=== PATIENT | female | born 1995 | race Caucasian/White ===

== ENCOUNTER → 2016-11-03 | Outpatient (CLI) | payer OTHER, BC | LOC: COL.RAD 09:17 | DX: M19.012 Primary osteoarthritis, left shoulder (principal); M25.812 Other specified joint disorders, left shoulder ==

== ENCOUNTER → 2017-02-07 | Emergency (ER) | payer OTHER, BC ==
[~2017-02-07] VITALS: Ht 160 cm; Wt 53.6 kg
[~2017-02-07] MED LIST: BIOTIN10000 MC1 PO; CALCIUM 600/VIT1 CAP PO; PRENATAL PLUS
[2017-02-07 14:10] VITALS: BP 132/85; PULSE 105; TEMP 97.9
[2017-02-07 15:15] LABS: BASO # 0.1 (0.0-0.2); BASO % 0.6 % (0.0-2.0); EOS # 0.1 (0.0-0.7); EOS % 0.5 % (0-4.0); GRAN % 62.1 % (42.2-75.2); HEMATOCRIT 46.2 % (35.0-45.0); HEMOGLOBIN 16.6 g/dl (12.0-15.0); LYMPH % 30.8 % (20.0-51.0); MEAN CELL VOLUME 87 fl (80.0-95.0); MEAN CORPUSCULAR HEMOGLOBIN 31 pg (26.0-32.0); MEAN CORPUSCULAR HGB CONC 36 g/dl (33.0-37.0); MONO # 0.6 (0.1-0.6); MONO % 5.8 % (1.7-9.3); PLATELET COUNT 261 K/mm3 (130-400); RED BLOOD COUNT 5.33 M/mm3 (4.10-5.30); REDCELL DISTRIBUTION WIDTH-CV 11.9 % (11.5-14.5); WHITE BLOOD COUNT 9.6 K/mm3 (4.8-10.8)
[2017-02-07 15:38] LABS: PH 7 (5-8); SQUAMOUS EPITHELIAL 0-2 /hpf; URINE APPEARANCE Clear; URINE BACTERIA Rare /hpf; URINE BILIRUBIN Negative (NEGATIVE); URINE BLOOD Negative (NEGATIVE); URINE COLOR Straw; URINE GLUCOSE Negative (NEGATIVE); URINE KETONE 1+ (NEGATIVE); URINE RBC 0-2 /hpf; URINE UROBILINOGEN Negative (NEGATIVE); URINE WBC None Seen /hpf
[2017-02-07 15:59] LABS: CREATININE, serum 0.79 mg/dL (0.52-1.25); POTASSIUM 3.9 mmol/L (3.4-5.0)
== END ==
LOC: COL.ER 13:57
PROVIDERS: Emergency Medicine
DX: O34.80 Maternal care for other abnormalities of pelvic organs, unspecified trimester (principal); N83.11 Corpus luteum cyst of right ovary; Z87.59 Personal history of other complications of pregnancy, childbirth and the puerperium; Z3A.00 Weeks of gestation of pregnancy not specified

== ENCOUNTER 2017-10-11 06:45 | Inpatient (IN) | payer BC, OTHER ==
[2017-10-11] VITALS (77 sets, daily range): BP systolic 116–171; BP diastolic 67–106; PULSE 84–171; TEMP 97.2–100.8
[~2017-10-11] VITALS: Ht 157.5 cm; Wt 74.5 kg
[2017-10-11] MEDS ORDERED: UNISOM25 MG PO (07:29)
[2017-10-11] MEDS ORDERED: VITAMIN B-6100 MG PO (07:30)
[2017-10-11 08:13] LABS: COLLECTION METHOD CLEAN CATCH
[2017-10-11 08:21] LABS: BASO # 0.1 (0.0-0.2); BASO % 0.5 % (0.0-2.0); EOS # 0.1 (0.0-0.7); EOS % 0.7 % (0-4.0); GRAN # 8.1 (1.4-6.5); GRAN % 74.8 % (42.2-75.2); HEMOGLOBIN 13.5 g/dl (12.5-16.0); LYMPH # 1.8 (1.2-3.4); LYMPH % 16.3 % (20.0-51.0); MEAN CELL VOLUME 91 fl (80.0-100.0); MEAN CORPUSCULAR HEMOGLOBIN 32 pg (27.0-31.0); MEAN CORPUSCULAR HGB CONC 35 g/dl (33.0-37.0); MEAN PLATELET VOLUME 10.5 fl (7.4-10.4); MONO # 0.7 (0.1-0.6); MONO % 6.4 % (1.7-9.3); PLATELET COUNT 174 K/mm3 (130-400); RED BLOOD COUNT 4.29 M/mm3 (4.10-5.30); REDCELL DISTRIBUTION WIDTH-CV 13.5 % (11.5-14.5)
[2017-10-11 08:24] LABS: PH 7 (5-8); SQUAMOUS EPITHELIAL 0-2 /hpf; URINE APPEARANCE Clear; URINE BACTERIA Rare /hpf; URINE BILIRUBIN Negative (NEGATIVE); URINE BLOOD Negative (NEGATIVE); URINE COLOR Straw; URINE GLUCOSE Negative (NEGATIVE); URINE KETONE Negative (NEGATIVE); URINE LEUKOCYTE ESTERASE Negative (NEGATIVE); URINE NITRATE Negative (NEGATIVE); URINE PROTEIN(semi-quant) Negative (NEGATIVE); URINE RBC None Seen /hpf; URINE UROBILINOGEN Negative (NEGATIVE); URINE WBC 0-2 /hpf
[2017-10-11 08:40] LABS: ALBUMIN 3.1 gm/dL (3.5-5.0); BILIRUBIN,TOTAL 0.7 mg/dL (0.0-1.0); CALCIUM 9.9 mg/dL (8.4-10.2); CREATININE, serum 0.75 mg/dL (0.52-1.25); POTASSIUM 3.8 mmol/L (3.4-5.0); TOTAL PROTEIN 6.3 gm/dL (6.4-8.2)
[2017-10-12] VITALS (7 sets, daily range): BP systolic 124–135; BP diastolic 68–88; PULSE 86–111; TEMP 97.6–98.6
[2017-10-12 07:16] LABS: BASO # 0.1 (0.0-0.2); BASO % 0.4 % (0.0-2.0); EOS % 0.2 % (0-4.0); GRAN # 16.1 (1.4-6.5); GRAN % 83.3 % (42.2-75.2); LYMPH # 1.7 (1.2-3.4); LYMPH % 8.6 % (20.0-51.0); MEAN CELL VOLUME 90 fl (80.0-100.0); MEAN CORPUSCULAR HGB CONC 35 g/dl (33.0-37.0); MEAN PLATELET VOLUME 10.2 fl (7.4-10.4); MONO # 1.3 (0.1-0.6); MONO % 6.7 % (1.7-9.3); PLATELET COUNT 149 K/mm3 (130-400); RED BLOOD COUNT 3.64 M/mm3 (4.10-5.30); REDCELL DISTRIBUTION WIDTH-CV 13.4 % (11.5-14.5)
[2017-10-12 07:23] LABS: HEMATOCRIT 32.7 % (37.0-47.0); HEMOGLOBIN 11.5 g/dl (12.5-16.0); MEAN CORPUSCULAR HEMOGLOBIN 32 pg (27.0-31.0)
[2017-10-12 07:24] LABS: ALBUMIN 2.7 gm/dL (3.5-5.0); BILIRUBIN,TOTAL 0.8 mg/dL (0.0-1.0); CREATININE, serum 0.79 mg/dL (0.52-1.25); POTASSIUM 4.2 mmol/L (3.4-5.0); TOTAL PROTEIN 5.5 gm/dL (6.4-8.2)
[2017-10-13 02:17] VITALS: BP 120/70; PULSE 89; TEMP 98.6
[2017-10-13 07:40] VITALS: BP 138/88; PULSE 93; TEMP 97.8
[2017-10-13] MEDS ORDERED: MOTRIN 800800 MG/TAB PO (09:51)
[2017-10-13] MEDS ORDERED: PERCOCET 325 MG1 TA2 PO (09:51)
== END 2017-10-13 12:55 | disposition home or self-care (01) | DRG 775 ==
LOC: LDR 06:45 → OB 06:45 → LDR 08:59 → OB 10-12 01:00 → LDR 10-14 06:54 → EDSTATUS 10-14 06:54 → LDRO 10-14 14:25
PROVIDERS: Student in an Organized Health Care Education/Training Program
PROC: 10E0XZZ Delivery of Products of Conception, External Approach (ICD-10-PCS; principal; 2017-10-11)
PROC: 0KQM0ZZ Repair Perineum Muscle, Open Approach (ICD-10-PCS; 2017-10-11)
PROC: 0W8NXZZ Division of Female Perineum, External Approach (ICD-10-PCS; 2017-10-11)
PROC: 3E033VJ Introduction of Other Hormone into Peripheral Vein, Percutaneous Approach (ICD-10-PCS; 2017-10-11)
PROC: 10907ZC Drainage of Amniotic Fluid, Therapeutic from Products of Conception, Via Natural or Artificial Opening (ICD-10-PCS; 2017-10-11)
DX: O75.89 Other specified complications of labor and delivery (principal); O99.824 Streptococcus B carrier state complicating childbirth; O70.1 Second degree perineal laceration during delivery; Z3A.39 39 weeks gestation of pregnancy; Z37.0 Single live birth
CPT/HCPCS: J0360; J0690; J1200; J2540; J2590; J7120

== ENCOUNTER → 2017-10-14 | Outpatient (CLI) | payer BC, OTHER ==
[~2017-10-14] MED LIST changes: +MOTRIN 800800 MG/TAB PO; +PERCOCET 325 MG1 TA2 PO; +UNISOM25 MG PO; +VITAMIN B-6100 MG PO
== END ==
LOC: LDRO 10:47
DX: E80.6 Other disorders of bilirubin metabolism (principal)

== ENCOUNTER → 2018-02-13 | Outpatient (CLI) | payer BC, OTHER | LOC: COL.RAD 11:42 | DX: M25.532 Pain in left wrist (principal) ==

== ENCOUNTER 2018-02-16 08:30 | Outpatient (RCR) | payer BC, OTHER | END 2018-05-17 | disposition home or self-care (01) | LOC: MKS.ESL.PT | DX: N81.4 Uterovaginal prolapse, unspecified (principal) ==